=== PATIENT | female | born 1995 | race Caucasian/White ===

== ENCOUNTER → 2018-04-14 | Outpatient (CLI) | payer OTHER ==
[~2018-04-14] MED LIST: ASHLYNA1 TAB PO; AUGMENTIN 875 M1 TAB PO; AUGMENTIN 875875 MG PO; BIRTH CONTROL1 EAC1 PO; FLEXERIL10 MG PO; MOTRIN600 MG PO; MOTRIN800 MG PO; Motrin,Rufen800 MG PO; NKHM; PANTOPRAZOLE SO40 MG PO; PEPCID20 MG PO; PROTONIX40 MG PO
== END | disposition home or self-care (01) ==
LOC: US 13:20
DX: N97.9 Female infertility, unspecified (principal)

== ENCOUNTER → 2018-04-21 | Outpatient (CLI) | payer OTHER ==
[2018-04-21 09:12] LABS: HEMATOCRIT 39.1 % (37.0-47.0); HEMOGLOBIN 12.9 g/dl (12.0-16.0); MEAN CELL VOLUME 86.1 fl (81.0-99.0); MEAN CORPUSCULAR HGB 28.4 pg (27.0-31.0); MEAN PLATELET VOLUME 9.9 fl (9.6-12.3); RED BLOOD COUNT 4.54 10*6/uL (4.10-5.10); RED CELL DISTRI WIDTH 12.8 % (0-14.5); WHITE BLOOD COUNT 9.5 10*3/uL (4.8-10.8)
[2018-04-21 09:24] LABS: ALBUMIN 3.6 gm/dl (3.1-4.5); BUN 8 mg/dl (7-24); CHLORIDE 107 mmol/L (98-107); CREATININE 0.79 mg/dL (0.55-1.02); POTASSIUM 4.3 mmol/L (3.5-5.1); SGOT/AST 14 IU/L (3-35); SGPT/ALT 18 U/L (12-78); SODIUM 137 mmol/L (136-145); TOTAL PROTEIN 7.5 gm/dL (6.4-8.2)
[2018-04-21 09:32] LABS: ALKALINE PHOSPHATASE 78 U/L (45-117)
[2018-04-21 11:31] LABS: VITAMIN D, 25-HYDROXY 16.6 ng/mL (30-100)
== END | disposition home or self-care (01) ==
LOC: LAB 08:40
PROVIDERS: Registered Nurse Flight
DX: Z00.01 Encounter for general adult medical examination with abnormal findings (principal); Z13.29 Encounter for screening for other suspected endocrine disorder; E53.8 Deficiency of other specified B group vitamins; E28.2 Polycystic ovarian syndrome; R53.82 Chronic fatigue, unspecified

== ENCOUNTER 2018-06-03 13:49 | Emergency (ER) | payer OTHER ==
[~2018-06-03] VITALS: Ht 165.1 cm; Wt 97.5 kg
[2018-06-03] MEDS ORDERED: ZOFRAN4 MG PO (14:00)
[2018-06-03] MEDS ORDERED: AUGMENTIN 500500 M1 PO (14:00)
== END 2018-06-03 14:41 | disposition home or self-care (01) ==
LOC: ED 13:49
DX: S51.812A Laceration without foreign body of left forearm, initial encounter (principal); R03.0 Elevated blood-pressure reading, without diagnosis of hypertension; Z23 Encounter for immunization; Z79.899 Other long term (current) drug therapy; W54.0XXA Bitten by dog, initial encounter; Y93.89 Activity, other specified; Y92.89 Other specified places as the place of occurrence of the external cause; Y99.8 Other external cause status

== ENCOUNTER 2019-03-31 00:31 | Emergency (ER) | payer OTHER ==
[~2019-03-31] VITALS: Ht 165.1 cm; Wt 88.9 kg
[~2019-03-31 00:31] MED LIST changes: +AUGMENTIN 500500 M1 PO; +ZOFRAN4 MG PO
[2019-04-01 08:11] LABS: HEPATITIS B SURFACE AB 006395 Reactive (.); HEPATITIS B SURFACE AG Negative (Negative); HEPATITIS C AB 0.1 (0.0-0.9)
== END 2019-03-31 01:56 | disposition home or self-care (01) ==
LOC: ED 00:31
PROVIDERS: Physician Assistant
DX: Z77.21 Contact with and (suspected) exposure to potentially hazardous body fluids (principal); Z79.2 Long term (current) use of antibiotics; Z79.899 Other long term (current) drug therapy

== ENCOUNTER 2019-06-25 22:24 | Emergency (ER) | payer OTHER ==
[~2019-06-25] VITALS: Ht 165.1 cm; Wt 97.5 kg
== END 2019-06-26 03:58 | disposition home or self-care (01) ==
LOC: ED 22:24
DX: H10.9 Unspecified conjunctivitis (principal); K21.9 Gastro-esophageal reflux disease without esophagitis; Z79.2 Long term (current) use of antibiotics; Z79.899 Other long term (current) drug therapy

== ENCOUNTER → 2019-08-03 | Outpatient (CLI) | payer OTHER ==
[2019-08-03 09:54] LABS: BASO # 0.1 10*3/uL (0.0-0.1); BASO % 0.7 % (0.0-1.0); EOS # 0.2 10*3/uL (0.0-0.4); EOS % 2.6 % (1.0-4.0); HEMATOCRIT 42.1 % (37.0-47.0); HEMOGLOBIN 13.7 g/dl (12.0-16.0); LYMPH # 2.6 10*3/uL (1.3-4.4); LYMPH % 29.9 % (27.0-41.0); MEAN CELL VOLUME 88.4 fl (81.0-99.0); MEAN CORPUSCULAR HGB 28.8 pg (27.0-31.0); MEAN CORPUSCULAR HGB CONC 32.5 g/dl (33.0-37.0); MEAN PLATELET VOLUME 10.2 fl (9.6-12.3); MONO # 0.7 10*3/uL (0.1-1.0); MONO % 8.3 % (3.0-9.0); NEUT # 5.1 10*3/uL (2.3-7.9); NEUT % 58.2 % (47.0-73.0); PLATELET COUNT AUTOMATED 307 10*3/uL (130-400); RED BLOOD COUNT 4.76 10*6/uL (4.10-5.10); RED CELL DISTRI WIDTH 12.6 % (0-14.5); RETICULOCYTE % 2.03 % (0.50-2.50); WHITE BLOOD COUNT 8.7 10*3/uL (4.8-10.8)
[2019-08-03 10:10] LABS: BILIRUBIN NEGATIVE (NEGATIVE); BLOOD NEGATIVE (NEGATIVE); CLARITY SL CLOUDY (CLEAR); COLOR YELLOW (YELLOW); GLUCOSE NEGATIVE (NEGATIVE); KETONE NEGATIVE (NEGATIVE); LEUKO ESTERASE NEGATIVE (NEGATIVE); NITRITE NEGATIVE (NEGATIVE); UROBILINOGEN 0.2 E.U./dl (0.2-1.0)
[2019-08-03 10:30] LABS: ALBUMIN 3.9 gm/dl (3.1-4.5); BUN 13 mg/dl (7-24); CHLORIDE 105 mmol/L (98-107); GAMMA GLUTAMYL TRANSPEPTIDASE 16 U/L (5-55); POTASSIUM 3.9 mmol/L (3.5-5.1); SODIUM 139 mmol/L (136-145)
[2019-08-03 10:38] LABS: BACTERIA TRACE; MUCOUS TRACE
[2019-08-03 10:42] LABS: ALKALINE PHOSPHATASE 79 U/L (45-117); CHOLESTEROL 161 mg/dL (<200); CREATININE 0.86 mg/dL (0.55-1.02); HDL CHOLESTEROL 46 mg/dl (40-60); IRON 78 ug/dL (50-170); LDL CHOLESTEROL 80 mg/dL (9-159); SGOT/AST 12 IU/L (3-35); SGPT/ALT 27 U/L (12-78); T3 UPTAKE 34 % (31-39); THYROXINE (T4) TOTAL 8.9 ug/dl (4.8-13.9); TOTAL IRON BINDING CAPACITY 382 ug/dl (250-450); TOTAL PROTEIN 7.8 gm/dL (6.4-8.2); TRIGLYCERIDES 175 mg/dl (<150); URIC ACID 6.5 mg/dL (2.6-6.0); VLDL CHOLESTEROL 35 mg/dL (6-40)
[2019-08-03 10:54] LABS: FERRITIN 61.6 ng/mL (10.0-291.0); VITAMIN D, 25-HYDROXY 37.9 ng/mL (30-100)
[2019-08-04 09:06] LABS: RHEUMATOID ARTHRITIS FACTOR <10.0 IU/mL (0.0-13.9)
[2019-08-04 12:06] LABS: ANTI-DSDNA ANTIBODIES 096339 <1 IU/mL (0-9)
== END | disposition home or self-care (01) ==
LOC: LAB 08:36
PROVIDERS: Family Medicine
DX: E55.9 Vitamin D deficiency, unspecified (principal); R79.89 Other specified abnormal findings of blood chemistry; R53.83 Other fatigue

== ENCOUNTER → 2020-01-31 | Outpatient (CLI) | payer OTHER ==
[2020-02-01 09:07] LABS: HEPATITIS B SURFACE AB Reactive (.)
[2020-02-01 17:10] LABS: VARICELLA-ZOSTER IGG 3986 index (Immune >165)
== END | disposition home or self-care (01) ==
LOC: LAB 11:12
PROVIDERS: Family Medicine
DX: R79.89 Other specified abnormal findings of blood chemistry (principal)

== ENCOUNTER → 2020-05-31 | Outpatient (CLI) | payer OTHER ==
[2020-05-31 10:09] LABS: BASO # 0.1 10*3/uL (0.0-0.1); BASO % 0.6 % (0.0-1.0); EOS # 0.3 10*3/uL (0.0-0.4); EOS % 2.6 % (1.0-4.0); HEMATOCRIT 39.1 % (37.0-47.0); LYMPH # 2.7 10*3/uL (1.3-4.4); MEAN CELL VOLUME 84.6 fl (81.0-99.0); MEAN CORPUSCULAR HGB 27.5 pg (27.0-31.0); MEAN CORPUSCULAR HGB CONC 32.5 g/dl (33.0-37.0); MEAN PLATELET VOLUME 9.7 fl (9.6-12.3); MONO # 0.8 10*3/uL (0.1-1.0); MONO % 7.4 % (3.0-9.0); NEUT # 6.6 10*3/uL (2.3-7.9); NEUT % 62.9 % (47.0-73.0); PLATELET COUNT AUTOMATED 317 10*3/uL (130-400); RED BLOOD COUNT 4.62 10*6/uL (4.10-5.10); RED CELL DISTRI WIDTH 12.8 % (0-14.5); RETICULOCYTE % 1.99 % (0.50-2.50); WHITE BLOOD COUNT 10.5 10*3/uL (4.8-10.8)
[2020-05-31 10:40] LABS: ALBUMIN 3.5 gm/dl (3.1-4.5); ALKALINE PHOSPHATASE 73 U/L (45-117); BUN 8 mg/dl (7-24); CHLORIDE 108 mmol/L (98-107); CHOLESTEROL 143 mg/dL (<200); CREATININE 0.76 mg/dL (0.55-1.02); GAMMA GLUTAMYL TRANSPEPTIDASE 21 U/L (5-55); HDL CHOLESTEROL 46 mg/dl (40-60); IRON 71 ug/dL (50-170); LDL CHOLESTEROL 68 mg/dL (9-159); POTASSIUM 4.2 mmol/L (3.5-5.1); SGOT/AST 17 IU/L (3-35); SGPT/ALT 30 U/L (12-78); SODIUM 138 mmol/L (136-145); T3 UPTAKE 33 % (31-39); TOTAL IRON BINDING CAPACITY 354 ug/dl (250-450); TOTAL PROTEIN 7.1 gm/dL (6.4-8.2); TRIGLYCERIDES 143 mg/dl (<150); VLDL CHOLESTEROL 29 mg/dL (6-40)
[2020-05-31 10:48] LABS: B-hCG (QUALITATIVE) NEGATIVE (NEGATIVE)
[2020-05-31 10:49] LABS: BILIRUBIN Negative (Negative); BLOOD Negative (Negative); CLARITY Clear (Clear); COLOR Yellow (Yellow); GLUCOSE Negative (Negative); KETONE Negative (Negative); LEUKO ESTERASE Negative (Negative); NITRITE Negative (Negative); UROBILINOGEN 0.2 E.U./dl (0.0-1.0)
[2020-05-31 10:50] LABS: BETA-HCG, QUANT < 1.0 mIU/mL (1-3)
[2020-05-31 10:59] LABS: FERRITIN 45.6 ng/mL (10.0-291.0); VITAMIN D, 25-HYDROXY 23.7 ng/mL (30-100)
[2020-05-31 12:12] LABS: BACTERIA TRACE; WBC 0-2 wbc/hpf (0-5)
== END | disposition home or self-care (01) ==
LOC: LAB 09:46
PROVIDERS: ATTEND Family Medicine
DX: N92.6 Irregular menstruation, unspecified (principal); R53.83 Other fatigue; R79.89 Other specified abnormal findings of blood chemistry

== ENCOUNTER → 2020-09-03 | Outpatient (CLI) | payer OTHER ==
[2020-09-03 12:55] LABS: FREE T4 0.82 ng/dl (0.76-1.46)
[2020-09-03 13:01] LABS: THYROID STIM HORMONE (HS) 2.05 uIU/ml (0.358-4.75)
== END | disposition home or self-care (01) ==
LOC: LAB 12:03
PROVIDERS: ATTEND Family Medicine
DX: R53.83 Other fatigue (principal); M54.2 Cervicalgia

== ENCOUNTER → 2020-10-04 | Outpatient (CLI) | payer OTHER | END | disposition home or self-care (01) | LOC: RAD 10:08 | PROVIDERS: ATTEND Family Medicine | DX: S99.911A Unspecified injury of right ankle, initial encounter (principal); X58.XXXA Exposure to other specified factors, initial encounter; Y93.89 Activity, other specified; Y92.89 Other specified places as the place of occurrence of the external cause; Y99.8 Other external cause status ==

== ENCOUNTER 2021-06-14 03:34 | Emergency (ER) | payer OTHER ==
[2021-06-14 04:13] LABS: BASO # 0.1 10*3/uL (0.0-0.1); BASO % 0.5 % (0.0-1.0); EOS # 0.3 10*3/uL (0.0-0.4); EOS % 2.3 % (1.0-4.0); HEMATOCRIT 39.7 % (37.0-47.0); LYMPH # 2.2 10*3/uL (1.3-4.4); LYMPH % 18.9 % (27.0-41.0); MEAN CELL VOLUME 86.7 fl (81.0-99.0); MEAN CORPUSCULAR HGB 28.2 pg (27.0-31.0); MEAN CORPUSCULAR HGB CONC 32.5 g/dl (33.0-37.0); MEAN PLATELET VOLUME 10.1 fl (9.6-12.3); MONO # 0.8 10*3/uL (0.1-1.0); MONO % 6.8 % (3.0-9.0); NEUT # 8.1 10*3/uL (2.3-7.9); PLATELET COUNT AUTOMATED 304 10*3/uL (130-400); RED BLOOD COUNT 4.58 10*6/uL (4.10-5.10); RED CELL DISTRI WIDTH 13.2 % (0-14.5); WHITE BLOOD COUNT 11.5 10*3/uL (4.8-10.8)
[2021-06-14 04:30] LABS: ALBUMIN 3.6 gm/dl (3.1-4.5); ALKALINE PHOSPHATASE 72 U/L (45-117); BUN 13 mg/dl (7-24); CHLORIDE 106 mmol/L (98-107); CREATININE 0.83 mg/dL (0.55-1.02); LIPASE 75 U/L (73-393); SGOT/AST 13 IU/L (3-35); SGPT/ALT 25 U/L (12-78); SODIUM 137 mmol/L (136-145); TOTAL PROTEIN 7.7 gm/dL (6.4-8.2)
[2021-06-14 05:07] LABS: BILIRUBIN Negative (Negative); BLOOD Negative (Negative); CLARITY Clear (Clear); COLOR Yellow (Yellow); GLUCOSE Negative (Negative); KETONE Negative (Negative); LEUKO ESTERASE Negative (Negative); NITRITE Negative (Negative); PH 5.5 (4.5-8.0); SPECIFIC GRAVITY <= 1.005 (1.001-1.030); UROBILINOGEN 0.2 E.U./dl (0.0-1.0)
[2021-06-14 05:17] LABS: BACTERIA TRACE; EPITHELIAL CELLS 0-2; RBC 0-2 rbc/hpf (0-2); WBC 0-2 wbc/hpf (0-5)
== END 2021-06-14 06:42 | disposition home or self-care (01) ==
LOC: ED 03:34
PROVIDERS: Internal Medicine
DX: R10.10 Upper abdominal pain, unspecified (principal); R11.0 Nausea; R19.7 Diarrhea, unspecified; R91.1 Solitary pulmonary nodule; Z79.899 Other long term (current) drug therapy

== ENCOUNTER → 2022-03-03 | Outpatient (CLI) | payer OTHER ==
[2022-03-03 16:15] LABS: BASO # 0.1 10*3/uL (0.0-0.1); BASO % 0.5 % (0.0-1.0); EOS # 0.2 10*3/uL (0.0-0.4); EOS % 1.8 % (1.0-4.0); HEMATOCRIT 40.6 % (37.0-47.0); LYMPH # 2.5 10*3/uL (1.3-4.4); LYMPH % 22.7 % (27.0-41.0); MEAN CELL VOLUME 88.5 fl (81.0-99.0); MEAN CORPUSCULAR HGB 29.2 pg (27.0-31.0); MEAN PLATELET VOLUME 9.7 fl (9.6-12.3); MONO # 0.8 10*3/uL (0.1-1.0); MONO % 7.6 % (3.0-9.0); NEUT # 7.4 10*3/uL (2.3-7.9); NEUT % 66.9 % (47.0-73.0); PLATELET COUNT AUTOMATED 323 10*3/uL (130-400); RED BLOOD COUNT 4.59 10*6/uL (4.10-5.10); RED CELL DISTRI WIDTH 12.7 % (0-14.5)
[2022-03-03 16:34] LABS: BUN 13 mg/dl (7-24); CHLORIDE 108 mmol/L (98-107); CREATININE 0.83 mg/dL (0.55-1.02); SODIUM 139 mmol/L (136-145)
[2022-03-03 16:44] LABS: BETA-HCG, QUANT < 1.0 mIU/mL (1-3)
== END | disposition home or self-care (01) ==
LOC: RESCLI 14:50
PROVIDERS: Family Medicine; ATTEND Internal Medicine
DX: M54.9 Dorsalgia, unspecified (principal); R63.5 Abnormal weight gain; N92.6 Irregular menstruation, unspecified; Z79.899 Other long term (current) drug therapy

== ENCOUNTER → 2022-03-06 | Outpatient (CLI) | payer OTHER | END | disposition home or self-care (01) | LOC: RAD 15:59 | PROVIDERS: ATTEND Internal Medicine | DX: M54.9 Dorsalgia, unspecified (principal) ==

== ENCOUNTER → 2022-04-29 | Outpatient (CLI) | payer OTHER | END | disposition home or self-care (01) | LOC: RESCLI 00:29 | PROVIDERS: ATTEND Internal Medicine | DX: F41.9 Anxiety disorder, unspecified (principal); M54.9 Dorsalgia, unspecified; M62.838 Other muscle spasm; Z72.89 Other problems related to lifestyle; Z79.899 Other long term (current) drug therapy ==

== ENCOUNTER → 2022-07-27 | Outpatient (CLI) | payer OTHER | END | disposition home or self-care (01) | LOC: RESCLI 04:36 | PROVIDERS: ATTEND Internal Medicine | DX: F41.9 Anxiety disorder, unspecified (principal); M62.838 Other muscle spasm; N92.6 Irregular menstruation, unspecified; M25.562 Pain in left knee; M25.561 Pain in right knee ==